=== PATIENT | male | born 1975 | race American Indian/Alaskan Native ===

== ENCOUNTER 2016-12-28 08:52 | Emergency (ER) | payer SELFPAY ==
[2016-12-28 09:30] LABS: Eosinophils % (Auto) 0.7 % (0.0-4.3); Hematocrit 38.3 % (35.5-45.6); Hemoglobin 12.2 gm/dl (11.8-15.2); Mean Corpuscular HGB Conc 32 % (32-34); Mean Corpuscular Volume 74 fl (84-94); Platelet Count 324 K/mm3 (140-440); Red Blood Count 5.21 M/mm3 (3.65-5.03); Red Cell Distribution Width 13.8 % (13.2-15.2); White Blood Count 6.1 K/mm3 (4.5-11.0)
[2016-12-28 09:33] LABS: Mean Corpuscular Hemoglobin 24 pg (28-32)
[2016-12-28 09:36] VITALS: BP 118/65
[2016-12-28 09:36] LABS: Anion Gap 18 mmol/L; Blood Urea Nitrogen 12 mg/dL (9-20); Calcium 8.6 mg/dL (8.4-10.2); Carbon Dioxide 23 mmol/L (22-30); Chloride 105.5 mmol/L (98-107); Glucose 99 mg/dL (75-100); Potassium 4.1 mmol/L (3.6-5.0); Sodium 142 mmol/L (137-145)
== END 2016-12-28 14:15 | disposition left against medical advice (07) ==
LOC: ED 08:52
DX: R07.9 Chest pain, unspecified (principal); Z53.21 Procedure and treatment not carried out due to patient leaving prior to being seen by health care provider
CPT/HCPCS: 36415; 80048; 84484; 85025; 93005; 93010